=== PATIENT | female | born 1995 | race African-American/Black ===

== ENCOUNTER 2020-02-07 01:39 | Emergency (ER) | payer SELFPAY ==
[2020-02-07] MEDS ORDERED: ACETAMINOPHEN 325 MG TABLET PO ONE (05:59)
--- NOTE | 2020-02-07 06:51 | RADIOLOGY REPORT (SQ) ---
EXAM DESCRIPTION: XR CHEST 2 VIEWS COMPLETED DATE/TME: 02/07/2020 00:00 CLINICAL HISTORY: 24 years Female, chest congestion COMPARISON: None. NUMBER OF VIEWS/TECHNIQUE: 2, PA/Lateral FINDINGS: Adequate lung volume, clear parenchyma, normal cardiac silhouette, and intact bony thorax. IMPRESSION: No acute cardiopulmonary findings.
--- NOTE | 2020-02-07 06:58 | ER Document Report ---
ED General - General Chief Complaint: Chest Congestion Stated Complaint: DIFFICULTY BREATHING,CONGESTION Time Seen by Provider: 02/07/20 06:56 Mode of Arrival: Ambulatory Information source: Patient Notes: 02/07/20 02:33 - ED Nursing Note by VENKATA JENKINS Num: [id number] : 1995 Patient Age: 24 pt was awoken from sleep w/congestion in throat and it was diff to breath for a few min. pt has no coldd sympyoms, no fever. pt breathing is normal now. no pain. MY NOTES 24-year-old black female arrives with chief complaint of feeling like thick jhon estion in the back of her throat as she awoke. She was studying for her [employer] test. She fell asleep and when she awoke she had the symptoms of choking and also popping of her ears. She denies any COVID-19 flu or strep throat problems but her fianc has been having head congestion and headaches lately. Patient denies any cough fever rhinorrhea hemoptysis trauma cephalgia chest pain dysuria TRAVEL OUTSIDE OF THE [place] IN LAST 30 DAYS: No - HPI Onset: This morning Onset/Duration: Better Quality of pain: No pain Severity: None Pain Level: Denies Associated symptoms: Fever, Sore throat Exacerbated by: Denies Relieved by: Denies Similar symptoms previously: No Recently seen / treated by doctor: No - Related Data Allergies/Adverse Reactions: No Known Allergies Allergy (Unverified 07/08/11 18:39) Home Medications: vitamin Past Medical History - Social History Smoking Status: Never Smoker Cigarette use (# per day): No Chew tobacco use (# tins/day): No Smoking Education Provided: No Frequency of alcohol use: None Drug Abuse: None Lives with: Family Family History: Reviewed & Not Pertinent Patient has suicidal ideation: No Patient has homicidal ideation: No - Immunizations Immunizations up to date: Yes Hx Diphtheria, Pertussis, Tetanus Vaccination: Yes Review of Systems - Review of Systems Constitutional: No symptoms reported EENT: See HPI, Throat pain, Difficulty swallowing Cardiovascular: No symptoms reported Respiratory: No symptoms reported Gastrointestinal: No symptoms reported Genitourinary: No symptoms reported Female Genitourinary: No symptoms reported Musculoskeletal: No symptoms reported Skin: No symptoms reported Hematologic/Lymphatic: No symptoms reported Neurological/Psychological: No symptoms reported Physical Exam - Vital signs Vitals: Temp Pulse Resp BP Pulse Ox 99.4 F 113 H 18 142/96 H 100 02/07/20 01:46 02/07/20 01:46 02/07/20 01:46 02/07/20 01:46 02/07/20 01:46 Interpretation: Hypertensive, Febrile - General General appearance: Appears well - HEENT Head: Normocephalic, Atraumatic Eyes: Normal Extraocular movements intact: Yes Eyelashes: Normal Pupils: PERRL Ears: Normal External canal: Normal Tympanic membrane: Serous effusion Sinus: Normal Nasal: Normal Mouth/Lips: Normal Mucous membranes: Normal Pharynx: Normal Neck: Normal - Respiratory Respiratory status: No respiratory distress Chest status: Nontender Breath sounds: Normal Chest palpation: Normal - Cardiovascular Rhythm: Regular Heart sounds: Normal auscultation Murmur: No - Abdominal Inspection: Normal Distension: No distension Bowel sounds: Normal Tenderness: Nontender Organomegaly: No organomegaly - Rectal Hemorrhoids: Other - deferred - Genitourinary Bimanuel exam: Other - deferred - Back Back: Normal, Nontender - Extremities General upper extremity: Normal inspection, Nontender, Normal color, Normal ROM, Normal temperature General lower extremity: Normal inspection, Nontender, Normal color, Normal ROM, Normal temperature, Normal weight bearing. No: Misty's sign - Neurological Neuro grossly intact: Yes Cognition: Normal Orientation: AAOx4 [place] Coma Scale Eye Opening: Spontaneous [place] Coma Scale Verbal: Oriented [place] Coma Scale Motor: Obeys Commands [place] Coma Scale Total: 15 Speech: Normal Motor strength normal: LUE, RUE, LLE, RLE Sensory: Normal - Psychological Associated symptoms: Normal affect, Normal mood - Skin Skin Temperature: Warm Skin Moisture: Dry Skin Color: Normal Course - Vital Signs Vital signs: Temp Pulse Resp BP Pulse Ox 98.1 F 85 18 133/94 H 100 02/07/20 06:52 02/07/20 06:52 02/07/20 06:52 02/07/20 06:52 02/07/20 06:52 - Laboratory Laboratory results interpreted by me: neg flu neg strep - Diagnostic Test Radiology reviewed: Reports reviewed Discharge - Discharge Clinical Impression: Hypertension Qualifiers: Hypertension type: unspecified Qualified Code(s): I10 - Essential (primary) hypertension Acute serous otitis media of both ears Qualifiers: Recurrence: not specified as recurrent Qualified Code(s): H65.03 - Acute serous otitis media, bilateral Condition: Good Disposition: HOME, SELF-CARE Additional Instructions: Your flu and strep test are negative and your coronavirus is pending for 2 to 3 days. Return to ER if symptoms persist or worsen. Take medicines as directed encourage fluids. Off work and school until coronavirus has resulted. Also your blood pressure was high today be sure to get this rechecked at least 3 times to verify any hypertension problems. Prescriptions: Mupirocin [Bactroban 2% Ointment 22 gm] 1 applic NASL HSP PRN #1 tube PRN Reason: Forms: Return to Work
[2020-02-07 07:56] LABS: A TYPE INFLUENZA AG NEGATIVE (NEGATIVE); B INFLUENZA AG NEGATIVE (NEGATIVE)
[2020-02-07 09:01] VITALS: BP 124/88
== END 2020-02-07 09:01 | disposition home or self-care (01) ==
LOC: ER 01:39
DX: H65.03 Acute serous otitis media, bilateral (principal); I10 Essential (primary) hypertension; J02.9 Acute pharyngitis, unspecified; R13.10 Dysphagia, unspecified; R09.89 Other specified symptoms and signs involving the circulatory and respiratory systems; R50.9 Fever, unspecified; Z79.899 Other long term (current) drug therapy; Z20.828 Contact with and (suspected) exposure to other viral communicable diseases
CPT/HCPCS: 99284; 87070; 87880; 87635; 87804; 71046; C9803

== ENCOUNTER 2020-03-15 22:43 | Emergency (ER) | payer SELFPAY ==
[2020-03-15 22:59] VITALS: BP 147/82
== END 2020-03-15 23:05 | disposition left against medical advice (07) ==
LOC: ER 22:43
DX: Z53.21 Procedure and treatment not carried out due to patient leaving prior to being seen by health care provider (principal)